=== PATIENT | female | born 1960 | race Caucasian/White ===

== ENCOUNTER 2018-06-13 12:19 | Emergency (ER) | payer OTHER ==
--- NOTE | 2018-06-13 13:05 | RAD REPORT ---
EXAM DESCRIPTION: CT - Head Brain Wo Cont - 06/13/2018 12:58 pm CLINICAL HISTORY: Headache COMPARISON: 2012 TECHNIQUE: Computed axial tomography of the head was obtained. IV contrast was not requested. All CT scans are performed using dose optimization technique as appropriate and may include automated exposure control or mA/KV adjustment according to patient size. FINDINGS: An intracranial bleed is not seen . The ventricles are normal in caliber. No extra-axial fluid collection is noted. Soft tissue is present within the sella turcica which appea rs a little bit more prominent than on the prior exam Fluid within the sinuses/ mastoids is not seen. IMPRESSION: Soft tissue within the sella turcica a which appears a little more prominent on the prio r exam probably representing volume averaging of normal pituitary gland. A small pituitary mass is co nsidered less likely. It is recommended that the patient have a nonemergent MRI of the pituitary glan d for further evaluation.
[2018-06-13] MEDS ORDERED: KETOROLAC 30 MG/ML INJ ONE (14:16)
--- NOTE | 2018-06-13 14:25 | EDPHYS ---
Physician Documentation [facility] Name: Era Contreras Age: 57 yrs Sex: Female : 1960 Arrival Date: 06/13/2018 Time: 12:22 Bed 20 Private MD: Vandana Lee F ED Physician Helio Salter HPI: 06/13 13:02 This 57 yrs old Female presents to ER via Ambulatory with complaints of kb Headache. 13:02 The patient or guardian reports cough, that is intermittent, described as moderate, kb with no sputum, flu symptoms, arthralgias, low-grade fever, myalgias. Onset: The symptoms/episode began/occurred 5 day(s) ago. Severity of symptoms: At their worst the symptoms were moderate, in the emergency department the symptoms are unchanged. Modifying factors: The symptoms are alleviated by nothing, the symptoms are aggravated by nothing. Associated signs and symptoms: Pertinent positives: fever, rhinorrhea, Pertinent negatives: chest pain, diarrhea, ear ache, nausea, sore throat, vomiting. The patient has not experienced similar symptoms in the past. The patient has been recently seen by a physician: the patient's primary care provider, yesterday, with similar presenting complaints, and apparently given a diagnosis of flu. Pt reports flu symptoms and a headache. States she was diagnosed with the flu yesterday by her PCP and started on Tamiflu. Today the headache has not been relieved with tylenol. Historical: - Allergies: 12:32 pentazocine lactate; hj 12:32 cyclobenzaprine HCl; hj 12:32 soap; hj 12:32 cefazolin sodium; hj 12:32 Morphine; hj 12:32 Codeine; hj 12:32 Metaxalone; hj 12:32 CAMPHOR; hj 12:32 Povidone-Iodine; hj - Home Meds: 12:32 atorvastatin 80 mg oral tab 1 tab once daily [Active]; amlodipine 5 mg tab 1 tab once hj daily [Active]; aspirin 81 mg Oral TbEC 1 tab once daily [Active]; Iron CR Oral daily [Active]; meloxicam 15 mg oral tab 1 tab once daily [Active]; - PMHx: 12:32 Hyperlipidemia; hj - PSHx: 12:32 Tonsillectomy; Adenoids; Tubal ligation; Hysterectomy; bunion surg; shoulder surg; hj Appendectomy; Bladder suspension; rectal surg with graft; - Immunization history:: Adult Immunizations up to date. - Social history:: Smoking status: Patient/guardian denies using tobacco, Patient/guardian denies using alcohol. - Ebola Screening: : Patient negative for fever greater than or equal to 101.5 degrees Fahrenheit, and additional compatible Ebola Virus Disease symptoms Patient denies exposure to infectious person Patient denies travel to an Ebola-affected area in the 21 days before illness onset. ROS: 12:59 Neck: Negative for injury, pain, and swelling, Cardiovascular: Negative for chest pain, kb palpitations, and edema, Abdomen/GI: Negative for abdominal pain, nausea, vomiting, diarrhea, and constipation, Back: Negative for injury and pain, : Negative for injury, bleeding, discharge, and swelling, MS/Extremity: Negative for injury and deformity, Skin: Negative for injury, rash, and discoloration. 12:59 Constitutional: Positive for body aches, chills, fatigue, fever, malaise, Negative for poor PO intake, weight loss. 12:59 ENT: Positive for rhinorrhea. 12:59 Respiratory: Positive for cough, Negative for dyspnea on exertion, hemoptysis, orthopnea, pleurisy, shortness of breath, sputum production, wheezing. 12:59 Neuro: Positive for headache. Exam: 12:59 Constitutional: This is a well developed, well nourished patient who is awake, alert, kb and in no acute distress. Head/Face: Normocephalic, atraumatic. Eyes: Pupils equal round and reactive to light, extra-ocular motions intact. Lids and lashes normal. Conjunctiva and sclera are non-icteric and not injected. Cornea within normal limits. Periorbital areas with no swelling, redness, or edema. ENT: Nares patent. No nasal discharge, no septal abnormalities noted. Tympanic membranes are normal and external auditory canals are clear. Oropharynx with no redness, swelling, or masses, exudates, or evidence of obstruction, uvula midline. Mucous membranes moist. Neck: Trachea midline, no thyromegaly or masses palpated, and no cervical lymphadenopathy. Supple, full range of motion without nuchal rigidity, or vertebral point tenderness. No Meningismus. Chest/axilla: Normal chest wall appearance and motion. Nontender with no deformity. No lesions are appreciated. Cardiovascular: Regular rate and rhythm with a normal S1 and S2. No gallops, murmurs, or rubs. Normal PMI, no JVD. No pulse deficits. Respiratory: Lungs have equal breath sounds bilaterally, clear to auscultation and percussion. No rales, rhonchi or wheezes noted. No increased work of breathing, no retractions or nasal flaring. Abdomen/GI: Soft, non-tender, with normal bowel sounds. No distension or tympany. No guarding or rebound. No evidence of tenderness throughout. Back: No spinal tenderness. No costovertebral tenderness. Full range of motion. Skin: Warm, dry with normal turgor. Normal color with no rashes, no lesions, and no evidence of cellulitis. MS/ Extremity: Pulses equal, no cyanosis. Neurovascular intact. Full, normal range of motion. Neuro: Awake and alert, GCS 15, oriented to person, place, time, and situation. Cranial nerves II-XII grossly intact. Motor strength 5/5 in all extremities. Sensory grossly intact. Cerebellar exam normal. Normal gait. Vital Signs: 12:34 BP 120 / 85; Pulse 112; Resp 18; Temp 99.3(TE); Pulse Ox 96% on R/A; Weight 74.84 kg; hj Height 5 ft. 3 in. (160.02 cm); Pain 10/10; 14:08 BP 103 / 62; Pulse 101; Resp 16; Temp 99.9(O); ss 15:08 BP 110 / 69; Pulse 93; Resp 18; Pulse Ox 94% ; mh5 12:34 Body Mass Index 29.23 (74.84 kg, 160.02 cm) MDM: 12:28 Patient medically screened. [facility] 12:58 Data reviewed: vital signs, nurses notes. Data interpreted: Pulse oximetry: on room air kb is 96 %. Interpretation: normal. 12:59 Counseling: I had a detailed discussion with the patient and/or guardian regarding: the kb historical points, exam findings, and any diagnostic results supporting the discharge/admit diagnosis, lab results, radiology results, the need for outpatient follow up, a family practitioner, to return to the emergency department if symptoms worsen or persist or if there are any questions or concerns that arise at home. 06/13 14:14 Order name: Urine Dipstick--Ancillary (enter results); Complete Time: 14:36 bd 06/13 12:44 Order name: CT Head Brain wo Cont; Complete Time: 13:07 kb 06/13 12:44 Order name: Urine Dipstick-Ancillary (obtain specimen); Complete Time: 13:47 kb 06/13 14:02 Order name: Vital Signs; Complete Time: 14:07 kb Administered Medications: 14:18 Drug: TORadol 60 mg Route: IM; Site: left gluteus; ss 14:45 Follow up: Response: No adverse reaction; Pain is unchanged, physician notified jl7 Disposition: 06/14 07:06 Co-signature as Attending Physician, Helio Salter MD I agree with the assessment and stephenie plan of care. Disposition: 06/13/18 14:24 Discharged to Home. Impression: Acute upper respiratory infection, unspecified, Headache. - Condition is Stable. - Discharge Instructions: Influenza, Adult, Mypa-qq-Yuad, General Headache Without Cause, [id number]. - Medication Reconciliation Form, Thank You Letter, Antibiotic Education, Prescription Opioid Use form. - Follow up: Emergency Department; When: As needed; Reason: Worsening of condition. Follow up: Vandana Lee MD; When: 2 - 3 days; Reason: Recheck today's complaints, Continuance of care, Re-evaluation by your physician. Signatures: Dispatcher [employer] EDMS Mariya Carrillo, FINISH MILL OPERATOR-C FINISH MILL OPERATOR-Ckb Helio Salter MD MD cha Smirch, Shelby, RN RN ss Joaquin, Henry, RN RN hj Leal, Jahala, RN RN jl7 Corrections: (The following items were deleted from the chart) 06/13 15:33 14:24 06/13/2018 14:24 Discharged to Home. Impression: Acute upper respiratory jl7 infection, unspecified; Headache. Condition is Stable. Forms are Medication Reconciliation Form, Thank You Letter, Antibiotic Education, Prescription Opioid Use. Follow up: Emergency Department; When: As needed; Reason: Worsening of condition. Follow up: Vandana Lee; When: 2 - 3 days; Reason: Recheck today's complaints, Continuance of care, Re-evaluation by your physician. kb
--- NOTE | 2018-06-13 14:25 | ER ---
Nurse's Notes [facility] Name: Era Contreras Age: 57 yrs Sex: Female : 1960 Arrival Date: 06/13/2018 Time: 12:22 Bed 20 Private MD: Vandana Lee F Diagnosis: Acute upper respiratory infection, unspecified;Headache Presentation: 06/13 12:27 Presenting complaint: Patient states: i was at my PCP and was tested positive flu and hj last night i started having sharp shooting pain on my L baptist; reports fever, T- 103 at home; denies nausea and vomiting; reports diarrhea since last night;. Transition of care: patient was not received from another setting of care. Onset of symptoms was June 13, 2018. Risk Assessment: Do you want to hurt yourself or someone else? Patient reports no desire to harm self or others. Initial Sepsis Screen: Does the patient meet any 2 criteria? No. Patient's initial sepsis screen is negative. Does the patient have a suspected source of infection? No. Patient's initial sepsis screen is negative. Care prior to arrival: None. 12:27 Method Of Arrival: Ambulatory 12:27 Acuity: EVERETTE 4 hj Triage Assessment: 12:33 Headache History: Denies prior headaches. General: Appears in no apparent distress. hj uncomfortable, Behavior is calm, cooperative, appropriate for age. Pain: Complains of pain in head Pain currently is 10 out of 10 on a pain scale. Pain began 1 day ago. Also complains of. Neuro: Level of Consciousness is awake, alert, obeys commands, Oriented to person, place, time, situation, Appropriate for age. Historical: - Allergies: 12:32 pentazocine lactate; hj 12:32 cyclobenzaprine HCl; hj 12:32 soap; hj 12:32 cefazolin sodium; hj 12:32 Morphine; hj 12:32 Codeine; hj 12:32 Metaxalone; hj 12:32 CAMPHOR; hj 12:32 Povidone-Iodine; hj - Home Meds: 12:32 atorvastatin 80 mg oral tab 1 tab once daily [Active]; amlodipine 5 mg tab 1 tab once hj daily [Active]; aspirin 81 mg Oral TbEC 1 tab once daily [Active]; Iron CR Oral daily [Active]; meloxicam 15 mg oral tab 1 tab once daily [Active]; - PMHx: 12:32 Hyperlipidemia; hj - PSHx: 12:32 Tonsillectomy; Adenoids; Tubal ligation; Hysterectomy; bunion surg; shoulder surg; hj Appendectomy; Bladder suspension; rectal surg with graft; - Immunization history:: Adult Immunizations up to date. - Social history:: Smoking status: Patient/guardian denies using tobacco, Patient/guardian denies using alcohol. - Ebola Screening: : Patient negative for fever greater than or equal to 101.5 degrees Fahrenheit, and additional compatible Ebola Virus Disease symptoms Patient denies exposure to infectious person Patient denies travel to an Ebola-affected area in the 21 days before illness onset. Screenin:32 Abuse screen: Denies threats or abuse. Denies injuries from another. Nutritional hj screening: No deficits noted. Tuberculosis screening: No symptoms or risk factors identified. Fall Risk None identified. Assessment: 13:00 General: Appears in no apparent distress. uncomfortable, ill, Behavior is calm, jl7 cooperative, appropriate for age. Pain: Complains of pain in left baptist Pain currently is 10 out of 10 on a pain scale. Quality of pain is described as sharp, shooting, Pain began 1 day ago. Is intermittent. Neuro: Level of Consciousness is awake, alert, obeys commands, Oriented to person, place, time, situation. Cardiovascular: Patient's skin is warm and dry. Respiratory: Airway is patent Respiratory effort is even, unlabored, Respiratory pattern is regular, symmetrical. Derm: Skin is pink, warm \T\ dry. Musculoskeletal: No signs and/or symptoms reported regarding the musculoskeletal system. 14:00 Reassessment: Patient appears in no apparent distress at this time. Patient and/or ss family updated on plan of care and expected duration. Pain level reassessed. Patient is alert, oriented x 3, equal unlabored respirations, skin warm/dry/pink. Respiratory: Breath sounds are clear bilaterally. Vital Signs: 12:34 BP 120 / 85; Pulse 112; Resp 18; Temp 99.3(TE); Pulse Ox 96% on R/A; Weight 74.84 kg; hj Height 5 ft. 3 in. (160.02 cm); Pain 10/10; 14:08 BP 103 / 62; Pulse 101; Resp 16; Temp 99.9(O); ss 15:08 BP 110 / 69; Pulse 93; Resp 18; Pulse Ox 94% ; mh5 12:34 Body Mass Index 29.23 (74.84 kg, 160.02 cm) ED Course: 12:22 Patient arrived in ED. rg4 12:22 Vandana Lee MD is Private Physician. rg4 12:29 Triage completed. hj 12:34 Arm band placed on left wrist. hj 12:34 Patient has correct armband on for positive identification. Bed in low position. Call light in reach. Side rails up X 1. 12:36 Mariya Carrillo FNP-C is PHCP. kb 12:36 Helio Salter MD is Attending Physician. kb 12:48 Caro Best, LEANNE is Primary Nurse. jl7 12:56 CT completed. Patient tolerated procedure well. Patient moved to CT via wheelchair. sw Patient moved back from CT. 12:58 CT Head Brain wo Cont In Process Unspecified. EDMS 14:24 Vandana Lee MD is Referral Physician. kb 15:27 No provider procedures requiring assistance completed. Patient did not have IV access jl7 during this emergency room visit. Administered Medications: 14:18 Drug: TORadol 60 mg Route: IM; Site: left gluteus; ss 14:45 Follow up: Response: No adverse reaction; Pain is unchanged, physician notified jl7 Outcome: 14:24 Discharge ordered by MD. kb 15:27 Discharged to home ambulatory. jl7 15:27 Condition: stable 15:27 Discharge instructions given to patient, Instructed on discharge instructions, follow up and referral plans. Demonstrated understanding of instructions, follow-up care. 15:33 Patient left the ED. jl7 Signatures: Dispatcher [employer] EDMS Mariya Carrillo FNP-C FNP-Ckb Smirch, Shelby, RN RN ss Warren, Shannon sw Joaquin, Henry, Sabrina Vidal RN 4 April [facility] Caro Best, LEANNE RN jl7
[2018-06-13 14:32] LABS: Urine Blood 2+ (NEG); Urine Glucose NEGATIVE (NEG); Urine Protein TRACE (NEG); Urine Specific Gravity 1.015 (1.005-1.030); Urine pH 5.5 (5.0-7.0)
== END 2018-06-13 15:33 | disposition home or self-care (01) ==
LOC: ER 12:19
DX: J06.9 Acute upper respiratory infection, unspecified (principal); E78.5 Hyperlipidemia, unspecified; Z79.82 Long term (current) use of aspirin; Z88.5 Allergy status to narcotic agent; Z88.8 Allergy status to other drugs, medicaments and biological substances; Z91.048 Other nonmedicinal substance allergy status
CPT/HCPCS: 70450; 81003; 82962; 96372; 99284

== ENCOUNTER 2021-09-08 07:18 | Day surgery (SDC) | payer OTHER ==
[2021-09-07 15:51] LABS: Absolute Lymphocytes (CBC) 2.3 K/uL (0.7-4.9); Lymphocytes % 35.5 % (15.3-44.8); RBC Red Blood Cell Count 4.22 M/uL (3.86-4.86)
[2021-09-07 16:07] LABS: Albumin 3.5 g/dL (3.4-5.0); Bilirubin Direct 0.2 mg/dL (0-0.2); Bilirubin Total 0.5 mg/dL (0.2-1.0); Potassium 3.6 mmol/L (3.5-5.1); Protein, Total 6.6 g/dL (6.4-8.2)
--- NOTE | 2021-09-07 16:11 | RAD REPORT ---
EXAM DESCRIPTION: RAD - Chest Pa And Lat (2 Views) - 09/07/2021 3:47 pm CLINICAL HISTORY: Pre Op, pending cholecystectomy COMPARISON: February 2018 TECHNIQUE: Frontal and lateral views of the chest were obtained. FINDINGS: The lungs are clear of acute finding. Interstitial pattern matches the prior study. Heart size is normal and central vasculature is within normal limits. No pleural effusion or pneumothorax seen. No acute bony finding noted. No aortic abnormality. IMPRESSION: No acute cardiopulmonary process. No significant change from comparison study.
[2021-09-08] MEDS ORDERED: Ringers Lactate 1,000 ML IV ONE (08:12)
[2021-09-08] MEDS ORDERED: CIPROFLOXACIN 400mg IV 400 MG/200 ML BAG IV ONE (08:12)
[2021-09-08] MEDS ORDERED: dexAMETHasone 10 MG/ML VIAL ONE (08:29)
[2021-09-08] MEDS ORDERED: ROCURONIUM 50 MG/5 ML VIAL IV ONE (08:29)
[2021-09-08] MEDS ORDERED: FENTANYL CITR 100 MCG/2 ML ONE (08:29)
[2021-09-08] MEDS ORDERED: propofoL 200 MG/20 ML VIAL IV ONE (08:29)
[2021-09-08] MEDS ORDERED: KETOROLAC 30 MG/ML INJ ONE (08:30)
[2021-09-08] MEDS ORDERED: MIDAZOLAM HCL 2 MG/2 ML INJ ONE (08:30)
[2021-09-08] MEDS ORDERED: LIDOCAINE 2% MPF 5 ML VIAL ONE (08:30)
[2021-09-08] MEDS ORDERED: ONDANSETRON 4 MG/2 ML VIAL ONE (08:34)
[2021-09-08] MEDS ORDERED: BUPIVACAINE 0.5% PF 10 ML VIAL ONE (09:27)
[2021-09-08] MEDS: BUPIVACAINE 0.5% PF 10 ML VIAL ONE ×2 (09:58→10:05)
--- NOTE | 2021-09-08 10:21 | P.BOP ---
Preoperative diagnosis: biliary dyskinesia, RUQ abd pain Postoperative diagnosis: same Primary procedure: LAparoscopic cholecystectomy Bleacher Sulfite Pulp: Zo Delaney (Romulo) Estimated blood loss: <10cc Specimen: gb Findings: as above Anesthesia: General Complications: None Transferred to: Recovery Room Condition: Good
[2021-09-08] MEDS ORDERED: GLYCOPYRROLATE 0.2 MG/ML SYR ONE (10:25)
[2021-09-08] MEDS: HYDROMORPHONE HCL 1 MG/ML INJ ONE ×2 (10:52→10:59)
[2021-09-08] MEDS ORDERED: TRAMADOL HCL 50 MG TAB ONE (11:53)
[2021-09-08 13:20] VITALS: BP 110/70; TEMP 98; O2SAT 93
== END 2021-09-08 12:35 | disposition home or self-care (01) ==
LOC: OR 07:18
PROVIDERS: ATTEND Surgery
PROC: 0FT44ZZ Resection of Gallbladder, Percutaneous Endoscopic Approach (ICD-10-PCS; principal; 2021-09-08 09:15)
DX: K81.1 Chronic cholecystitis (principal); R10.11 Right upper quadrant pain; Z20.822 Contact with and (suspected) exposure to COVID-19
CPT/HCPCS: 93005; 85025; 80048; 36415; 82150; 80076; 88304; 83690; 71046; 47562; U0003; J2704; J2250; J3010; J1100; J1170; J7120; J2405; J0744

== ENCOUNTER 2022-05-10 22:33 | Emergency (ER) | payer OTHER ==
--- OUTSIDE RECORDS SUMMARY | 2022-05-10 22:35 | XMS REPORT | Continuity of Care Document ---
:1960 Author Organization [facility] t Address [address] [place] [address] [address] [place] [address] Care Team Providers Name Role Phone DR HERMES PACK Attending Clinician Unavailable MOUNA, DR HEYDI DELANEY Attending Clinician Unavailable DR HERMES PACK Admitting Clinician Unavailable MOUNA, DR HEYDI DELANEY Admitting Clinician Unavailable Problems This patient has no known problems. Allergies, Adverse Reactions, Alerts Allergy Allergy Status Severity Reaction(s) Onset Inactive Treating Comm ents Source Name Type Date Date Clinician Ancef DA Active Unknown ear lobe [facility] swelling [facility] Betadine DA Active Unknown Blister [facility] Silvaden DA Active Unknown Blister [facility] e [facility] Flexall DA Active Unknown cannot [facility] urinate [facility] Medications This patient has no known medications. Vital Signs Vital Name Observation Time Observation Value Comments Source Height 2021-02-16 08:10:00 160.02 CM Weight 2021-02-16 08:10:00 74.38 KG Height 2021-02-15 08:49:00 160.02 CM Weight 2021-02-15 08:49:00 71.66 KG Height 2021-02-09 06:21:00 160.02 CM Weight 2021-02-09 06:21:00 73.02 KG Height 2021-02-01 13:14:00 160.02 CM Weight 2021-02-01 13:14:00 71.66 KG Height 2020-06-29 06:23:00 160.02 CM Weight 2020-06-29 06:23:00 71.21 KG Procedures Procedure Date / Time Performed Performing Clinician Amparo hamm EXC NASAL SEPTUM ZULEYKA/ART 2021-02-16 00:00:00 [facility] ENDO Center EXCISION NASAL TURBIN 2021-02-16 00:00:00 [facility] ENDO Center DRAINAGE LT SP SIN 2021-02-16 00:00:00 [facility]ULEYKA/ART [facility] END Center REPLACEMENT LT MID EAR 2020-06-29 00:00:00 [facility] AUTO TISS OP Center REPLACEMENT LEFT AUD 2020-06-29 00:00:00 [facility] OSSICLE SYN OP Center Encounters Start End Encounter Admission Attending Care Care Encounter Source Date/Time Date/Time Type Type Clinicians Facility Department ID 2021-02-16 2021-02-16 Outpatient Briseida [facility] OSCGP [id number] [facility] 13[facility] 2021-02-09 2021-02-09 Outpatient Briseida [facility]ASC [id number] [place] 05:58:00 08:00:00 [facility] 2020-06-29 2020-06-29 [facility] [id number] [place] 05:41:00 10:40:00 [facility] Results This patient has no known results.
[2022-05-10 23:15] LABS: Urine Blood Trace-lysed (Negative); Urine Glucose Negative (Negative); Urine Protein Negative (Negative); Urine Specific Gravity <=1.005 (1.005-1.030)
[2022-05-10 23:33] LABS: Absolute Lymphocytes (CBC) 2.6 K/uL (0.7-4.9); Hematocrit 40.4 % (36.0-45.0); Lymphocytes % 41.3 % (15.3-44.8); MCV 92.2 fL (80-100); MPV 9.2 fL (7.6-11.3); RBC Red Blood Cell Count 4.37 M/uL (3.86-4.86)
[2022-05-10 23:41] LABS: Urine Bacteria <20 /HPF (<20); Urine RBC <5 /HPF (None Seen)
[2022-05-10] MEDS ORDERED: ONDANSETRON 4 MG/2 ML VIAL ONE (23:45)
[2022-05-10] MEDS ORDERED: FENTANYL CITR 100 MCG/2 ML ONE (23:45)
[2022-05-10] MEDS ORDERED: FAMOTIDINE 20 MG/2 ML VIAL IV ONE (23:45)
[2022-05-11 00:01] LABS: Albumin 3.9 g/dL (3.4-5.0); Bilirubin Total 0.5 mg/dL (0.2-1.0); Potassium 3.5 mmol/L (3.5-5.1); Protein, Total 7.3 g/dL (6.4-8.2); Troponin High Sensitivity 3.5 pg/mL (<58.9)
[2022-05-11 00:09] LABS: Protime INR 1.05
--- NOTE | 2022-05-11 01:24 | ER ---
Nurse's Notes [facility] Name: Era Contreras Age: 61 yrs Sex: Female : 1960 Arrival Date: 05/10/2022 Time: 22:39 Bed 26 Private MD: Diagnosis: Abdominal tenderness;Unspecified symptoms and signs involving the musculoskeletal system Presentation: 05/10 22:53 Chief complaint: Patient states: epigastric pain started 2 hours ago while bowling. 3 Coronavirus screen:. Ebola Screen: No symptoms or risks identified at this time. Risk Assessment: Do you want to hurt yourself or someone else? Patient reports no desire to harm self or others. Onset of symptoms was May 10, 2022. 22:53 Method Of Arrival: Ambulatory [facility] 22:53 Acuity: EVERETTE 3 3 22:54 Initial Sepsis Screen: Does the patient meet any 2 criteria? No. Patient's initial [facility] sepsis screen is negative. Does the patient have a suspected source of infection? No. Patient's initial sepsis screen is negative. Triage Assessment: 22:54 General: Appears distressed, uncomfortable, Behavior is cooperative, appropriate for [facility] age, crying. Pain: Complains of pain in epigastric area Pain does not radiate. Pain currently is 9 out of 10 on a pain scale. Quality of pain is described as sharp, stabbing, Pain began 2 hours ago. Is continuous, Alleviated by rest, Aggravated by increased activity. Neuro: Level of Consciousness is awake, alert, obeys commands, Oriented to person, place, time, situation. Cardiovascular: Capillary refill < 3 seconds Patient's skin is warm and dry. Respiratory: Airway is patent Respiratory effort is even, unlabored. GI: No signs and/or symptoms were reported involving the gastrointestinal system. : No signs and/or symptoms were reported regarding the genitourinary system. Historical: - Allergies: 22:54 CAMPHOR; 3 22:54 cefazolin sodium; eh3 22:54 Codeine; eh3 22:54 cyclobenzaprine HCl; eh3 22:54 Metaxalone; eh3 22:54 Morphine; eh3 22:54 pentazocine lactate; eh3 22:54 Povidone-Iodine; eh3 22:54 soap; 3 - Home Meds: 22:54 amlodipine 5 mg tab 1 tab once daily [Active]; aspirin 81 mg Oral TbEC 1 tab once daily 3 [Active]; Iron CR Oral daily [Active]; meloxicam 15 mg Oral tab 1 tab once daily [Active]; - PMHx: 22:54 Hyperlipidemia; eh3 - Immunization history:: Adult Immunizations. - Social history:: Smoking status: Patient denies any tobacco usage or history of. Patient/guardian denies using alcohol. - Family history:: not pertinent. Screenin:24 Abuse screen: Denies threats or abuse. Denies injuries from another. Nutritional kb3 screening: No deficits noted. Tuberculosis screening: No symptoms or risk factors identified. Fall Risk None identified. Assessment: 23:24 General: Appears in no apparent distress. Behavior is calm, cooperative, See triage kb3 note. GI: Bowel sounds present X 4 quads. Abd is soft Abdomen is tender to palpation in epigastric area. 05/11 01:08 Reassessment: Patient is alert, oriented x 3, equal unlabored respirations, skin bb warm/dry/pink. pt states her abdominal pain is returning Dr Salter notified. 02:22 Reassessment: Patient is alert, oriented x 3, equal unlabored respirations, skin bb warm/dry/pink. pt verbalized understanding of and agrees to plan of care discharge instructions given pt assisted to exit via wheelchair accompanied by this RN Patient states feeling better. Vital Signs: 05/10 22:54 BP 142 / 90; Pulse 85; Resp 18; Temp 99.2(O); Pulse Ox 98% on R/A; Weight 68.04 kg; 3 Height 5 ft. 2 in. (157.48 cm); Pain 9/10; 23:40 BP 140 / 84; Pulse 79; Resp 18; Pulse Ox 100% on R/A; Pain 6/10; ld1 05/11 01:09 BP 123 / 83; Pulse 87; Resp 20 S; Pulse Ox 99% on R/A; bb 01:58 BP 118 / 80; Pulse 77; Resp 16 S; Pulse Ox 100% on R/A; Pain 5/10; bb 05/10 22:54 Body Mass Index 27.44 (68.04 kg, 157.48 cm) [facility] ED Course: 05/10 22:39 Patient arrived in ED. ag3 22:54 Triage completed. eh3 22:54 Arm band placed on right wrist. eh3 23:13 Helio Salter MD is Attending Physician. stephenie 23:16 Inserted saline lock: 20 gauge in right antecubital area, using aseptic technique. ld1 Blood collected. 23:16 Urine Microscopic Only Sent. ld1 23:24 Lana Ramirez, RN is Primary Nurse. kb3 23:24 Patient has correct armband on for positive identification. Bed in low position. Call kb3 light in reach. Side rails up X 1. 23:47 XRAY Chest (1 view) In Process Unspecified. EDMS 05/11 00:44 CT Abd/Pelvis - IV Contrast Only In Process Unspecified. EDMS 01:58 No provider procedures requiring assistance completed. bb 02:23 IV discontinued, intact, bleeding controlled, No redness/swelling at site. Pressure bb dressing applied. Administered Medications: 05/10 23:40 Drug: fentaNYL (PF) 50 mcg Route: IVP; Site: right antecubital; ld1 05/11 00:30 Follow up: Response: No adverse reaction bb 05/10 23:40 Drug: Zofran (Ondansetron) 4 mg Route: IVP; Site: right antecubital; ld1 05/11 00:30 Follow up: Response: No adverse reaction bb 05/10 23:40 Drug: Pepcid (famotidine) 20 mg Route: IVP; Site: right antecubital; ld1 05/11 00:30 Follow up: Response: No adverse reaction bb 01:57 Drug: fentaNYL (PF) 50 mcg Route: IVP; Site: right antecubital; bb 02:21 Follow up: Response: Pain is decreased bb 01:57 Drug: Zofran (Ondansetron) 4 mg Route: IVP; Site: right antecubital; bb 02:21 Follow up: Response: No adverse reaction bb Medication: 05/10 23:24 VIS not applicable for this client. kb3 Outcome: 05/11 01:23 Discharge ordered by . stephenie 02:22 Discharged to home via wheelchair, with family. bb 02:22 Condition: stable 02:22 Discharge instructions given to patient, Instructed on discharge instructions, follow up and referral plans. no driving heavy equipment, medication usage, Demonstrated understanding of instructions, follow-up care, medications, Prescriptions given X 4. 02:23 Patient left the ED. bb Signatures: Dispatcher [employer] EDCO Helio Salter MD MD cha Ballard, Brenda, RN RN bb Ria Gayle Lauren, RN RN ld1 Anita Antony, RN RN eh3 Lana Ramirez RN RN kb3
--- NOTE | 2022-05-11 01:24 | EDPHYS ---
Physician Documentation [facility] Name: Era Contreras Age: 61 yrs Sex: Female : 1960 Arrival Date: 05/10/2022 Time: 22:39 Bed 26 Private MD: DANYEL Physician Heloi Salter HPI: 05/11 01:16 This 61 yrs old Female presents to ER via Ambulatory with complaints of stephenie Abdominal Pain. 01:16 The patient presents with abdominal pain in the epigastric area, in the upper abdomen. stephenie Onset: The symptoms/episode began/occurred just prior to arrival. The symptoms do not radiate. Associated signs and symptoms: none. The symptoms are described as crampy, sharp. Modifying factors: The symptoms are alleviated by remaining still, the symptoms are aggravated by movement. Severity of pain: At its worst the pain was. The patient has not experienced similar symptoms in the past. Historical: - Allergies: 05/10 22:54 CAMPHOR; eh3 22:54 cefazolin sodium; eh3 22:54 Codeine; eh3 22:54 cyclobenzaprine HCl; eh3 22:54 Metaxalone; eh3 22:54 Morphine; eh3 22:54 pentazocine lactate; eh3 22:54 Povidone-Iodine; eh3 22:54 soap; eh3 - Home Meds: 22:54 amlodipine 5 mg tab 1 tab once daily [Active]; aspirin 81 mg Oral TbEC 1 tab once daily eh3 [Active]; Iron CR Oral daily [Active]; meloxicam 15 mg Oral tab 1 tab once daily [Active]; - PMHx: 22:54 Hyperlipidemia; eh3 - Immunization history:: Adult Immunizations. - Social history:: Smoking status: Patient denies any tobacco usage or history of. Patient/guardian denies using alcohol. - Family history:: not pertinent. ROS: 05/11 01:16 Constitutional: Negative for fever, chills, and weight loss, Eyes: Negative for injury, stephenie pain, redness, and discharge, ENT: Negative for injury, pain, and discharge, Neck: Negative for injury, pain, and swelling, Cardiovascular: Negative for chest pain, palpitations, and edema, Respiratory: Negative for shortness of breath, cough, wheezing, and pleuritic chest pain, Back: Negative for injury and pain, : Negative for injury, bleeding, discharge, and swelling, MS/Extremity: Negative for injury and deformity, Skin: Negative for injury, rash, and discoloration, Neuro: Negative for headache, weakness, numbness, tingling, and seizure, Psych: Negative for depression, anxiety, suicide ideation, homicidal ideation, and hallucinations, Allergy/Immunology: Negative for hives, rash, and allergies, Endocrine: Negative for neck swelling, polydipsia, polyuria, polyphagia, and marked weight changes, Hematologic/Lymphatic: Negative for swollen nodes, abnormal bleeding, and unusual bruising. Abdomen/GI: Positive for abdominal pain, abdominal cramps, abdominal distension. Exam: 01:16 Constitutional: This is a well developed, well nourished patient who is awake, alert, stephenie and in no acute distress. Head/Face: Normocephalic, atraumatic. Eyes: Pupils equal round and reactive to light, extra-ocular motions intact. Lids and lashes normal. Conjunctiva and sclera are non-icteric and not injected. Cornea within normal limits. Periorbital areas with no swelling, redness, or edema. ENT: Nares patent. No nasal discharge, no septal abnormalities noted. Tympanic membranes are normal and external auditory canals are clear. Oropharynx with no redness, swelling, or masses, exudates, or evidence of obstruction, uvula midline. Mucous membranes moist. Neck: Trachea midline, no thyromegaly or masses palpated, and no cervical lymphadenopathy. Supple, full range of motion without nuchal rigidity, or vertebral point tenderness. No Meningismus. Chest/axilla: Normal chest wall appearance and motion. Nontender with no deformity. No lesions are appreciated. Cardiovascular: Regular rate and rhythm with a normal S1 and S2. No gallops, murmurs, or rubs. Normal PMI, no JVD. No pulse deficits. Respiratory: Lungs have equal breath sounds bilaterally, clear to auscultation and percussion. No rales, rhonchi or wheezes noted. No increased work of breathing, no retractions or nasal flaring. Back: No spinal tenderness. No costovertebral tenderness. Full range of motion. Female : Normal external genitalia. Skin: Warm, dry with normal turgor. Normal color with no rashes, no lesions, and no evidence of cellulitis. MS/ Extremity: Pulses equal, no cyanosis. Neurovascular intact. Full, normal range of motion. Neuro: Awake and alert, GCS 15, oriented to person, place, time, and situation. Cranial nerves II-XII grossly intact. Motor strength 5/5 in all extremities. Sensory grossly intact. Cerebellar exam normal. Normal gait. Psych: Awake, alert, with orientation to person, place and time. Behavior, mood, and affect are within normal limits. 01:16 ECG was reviewed by the Attending Physician. 01:16 Abdomen/GI: Inspection: abdomen appears normal, Bowel sounds: normal, Palpation: mild abdominal tenderness, moderate abdominal tenderness, in the umbilical area, right upper quadrant and left upper quadrant, Liver: no appreciated palpable abnormalities, Hernia: not appreciated. 01:25 Musculoskeletal/extremity: DVT Exam: No signs of deep vein thrombosis. no pain, no stephenie swelling, no tenderness, negative Homans' sign noted on exam, no appreciated bluish discoloration, no erythema, no increased warmth. Vital Signs: 05/10 22:54 BP 142 / 90; Pulse 85; Resp 18; Temp 99.2(O); Pulse Ox 98% on R/A; Weight 68.04 kg; eh3 Height 5 ft. 2 in. (157.48 cm); Pain 9/10; 23:40 BP 140 / 84; Pulse 79; Resp 18; Pulse Ox 100% on R/A; Pain 6/10; ld1 05/11 01:09 BP 123 / 83; Pulse 87; Resp 20 S; Pulse Ox 99% on R/A; bb 01:58 BP 118 / 80; Pulse 77; Resp 16 S; Pulse Ox 100% on R/A; Pain 5/10; bb 05/10 22:54 Body Mass Index 27.44 (68.04 kg, 157.48 cm) eh3 MDM: 05/10 23:13 Patient medically screened. stephenie 05/11 01:21 Differential diagnosis: diverticulitis, gastritis, gastroesophageal reflux disease, stephenie non-specific abd pain, pancreatitis, Peptic Ulcer Disease, urinary tract infection. Data reviewed: vital signs, nurses notes, lab test result(s), EKG, radiologic studies, CT scan, plain films. Data interpreted: personnel monitor: rate is 87 beats/min, rhythm is regular, Pulse oximetry: on room air. Test interpretation: by ED physician or midlevel provider: ECG, plain radiologic studies. Counseling: I had a detailed discussion with the patient and/or guardian regarding: the historical points, exam findings, and any diagnostic results supporting the discharge/admit diagnosis, lab results, radiology results, the need for outpatient follow up, for definitive care, a family practitioner. 05/10 22:58 Order name: CBC with Diff; Complete Time: 00:10 [facility] 05/10 22:58 Order name: CMP; Complete Time: 00:10 [facility] 05/10 22:58 Order name: Lipase; Complete Time: 00:10 [facility] 05/10 23:03 Order name: Urine Microscopic Only; Complete Time: 00:10 [facility] 05/10 23:16 Order name: Urine Dipstick-Ancillary; Complete Time: 00:10 [facility] 05/10 23:20 Order name: PT-INR [facility] 05/10 23:20 Order name: XRAY Chest (1 view) [facility] 05/10 23:29 Order name: Troponin High Sensitivity; Complete Time: 00:10 [facility] 05/10 23:29 Order name: NT PRO-BNP; Complete Time: 00:10 [facility] 05/10 23:32 Order name: CT Abd/Pelvis - IV Contrast Only [facility] 05/10 22:58 Order name: IV Saline Lock; Complete Time: 23:16 [facility] 05/10 22:58 Order name: Labs collected and sent; Complete Time: 23:16 [facility] 05/10 23:03 Order name: Urine Dipstick-Ancillary (obtain specimen); Complete Time: 23:16 [facility] 05/10 23:20 Order name: EKG; Complete Time: 23:20 [facility] 05/10 23:20 Order name: Cardiac monitoring; Complete Time: 23:26 [facility] 05/10 23:20 Order name: EKG - Nurse/Tech; Complete Time: 01:12 [facility] 05/10 23:20 Order name: O2 Per Protocol; Complete Time: 23:26 [facility] 05/10 23:20 Order name: O2 Sat Monitoring; Complete Time: 23:26 [facility] EC:16 Rate is 103 beats/min. Rhythm is regular. QRS [place] is Normal. [place] interval is normal. [facility] QRS interval is normal. QT interval is normal. No Q waves. T waves are Normal. No ST changes noted. Clinical impression: Normal ECG, NSR w/ Non-specific ST/T Changes, and No evidence of ischemia. Interpreted by me. Reviewed by me. Administered Medications: 05/10 23:40 Drug: fentaNYL (PF) 50 mcg Route: IVP; Site: right antecubital; ld1 05/11 00:30 Follow up: Response: No adverse reaction bb 05/10 23:40 Drug: Zofran (Ondansetron) 4 mg Route: IVP; Site: right antecubital; ld1 05/11 00:30 Follow up: Response: No adverse reaction bb 05/10 23:40 Drug: Pepcid (famotidine) 20 mg Route: IVP; Site: right antecubital; ld1 05/11 00:30 Follow up: Response: No adverse reaction bb 01:57 Drug: fentaNYL (PF) 50 mcg Route: IVP; Site: right antecubital; bb 02:21 Follow up: Response: Pain is decreased bb 01:57 Drug: Zofran (Ondansetron) 4 mg Route: IVP; Site: right antecubital; bb 02:21 Follow up: Response: No adverse reaction bb Disposition Summary: 05/11/22 01:23 Discharge Ordered Location: Home stephenie Problem: new stephenie Symptoms: have improved stephenie Condition: Stable stephenie Diagnosis - Abdominal tenderness stephenie - Unspecified symptoms and signs involving the musculoskeletal system stephenie Followup: stephenie - With: Private Physician - When: 2 - 3 days - Reason: Recheck today's complaints, Continuance of care, Re-evaluation by your physician Discharge Instructions: - Discharge Summary Sheet stephenie - Abdominal Pain, Adult stephenie - Abdominal Pain, Adult, [id number] stephenie - Musculoskeletal Pain stephenie Forms: - Medication Reconciliation Form stephenie - Thank You Letter stephenie - Antibiotic Education stephenie - Prescription Opioid Use stephenie Prescriptions: - Pepcid 20 mg Oral Tablet - take 1 tablet by ORAL route every 12 hours for 10 days; 20 tablet; Refills: 0, [facility] Product Selection Permitted - Zofran 4 mg Oral Tablet - take 1 tablet by ORAL route every 12 hours As needed; 20 tablet; Refills: 0, [facility] Product Selection Permitted - Diclofenac Sodium 75 mg Oral tablet,delayed release (DR/EC) - take 1 tablet by ORAL route 2 times per day; 20 tablet; Refills: 0, Product stephenie Selection Permitted - Tylenol-Codeine #3 300 mg-30 mg Oral - take 2 tablet by ORAL route every 6 hours; 20 tablet; Refills: 0, Product stephenie Selection Permitted Signatures: Dispatcher [employer] EDMS Helio Salter MD MD cha Ballard, Brenda RN RN Simi Hawkins RN RN ld1 Anita Antony RN RN eh3 Corrections: (The following items were deleted from the chart) 05/10 23: 23:20 PROBNP+C.LAB.BRZ ordered. EDMS EDMS 23:20 Troponin High Sensitivity+C.LAB.BRZ ordered. EDMS EDMS
[2022-05-11] MEDS ORDERED: ONDANSETRON 4 MG/2 ML VIAL ONE (01:58)
[2022-05-11] MEDS ORDERED: FENTANYL CITR 100 MCG/2 ML ONE (01:58)
[2022-05-11 03:06] VITALS: TEMP 99.2
[2022-05-11 03:20] VITALS: BP 118/80; O2SAT 100
--- NOTE | 2022-05-11 16:27 | RAD REPORT ---
EXAM DESCRIPTION: Abdomen Pelvis W Contrast CLINICAL HISTORY: Abdominal pain, acute, nonlocalized COMPARISON: None Available. TECHNIQUE: CT of the abdomen and pelvis performed following IV administration of iodinated contras t. This exam was performed according to our departmental dose-optimization program, which includes au tomated exposure control, adjustment of the mA and/or kV according to patient size and/or use of iter ative reconstruction technique. FINDINGS: Lung Bases: The visualized lung bases are clear. Bones: No destructive bone lesions identified. Abdomen: Liver: The liver has normal size and density. No intrahepatic biliary dilatation. Gallbladder: Prior cholecystectomy. Spleen, Pancreas, and Adrenal Glands: The spleen, pancreas, and adrenal glands are unremarkable. Kidneys: No hydronephrosis or obstructing calculus. Vasculature: Aortoiliac atherosclerosis. The portal vein is patent. The proximal visceral and renal arteries are patent. Stomach: The stomach and duodenum have normal course. Other: No free intraperitoneal air. No free fluid or lymphadenopathy. Pelvis: Bladder: Urinary bladder is unremarkable. Bowel: No dilated loops of large or small bowel. Moderate amount of stool. Scattered diverticula th roughout the colon. Appendix: Normal appendix. Pelvis: Prior hysterectomy. IMPRESSION: 1. No acute inflammatory or obstructive process identified. 2. Diverticulosis without evidence of acute diverticulitis. Electronically signed by: Piyush Ortiz 05/11/2022 12:54 AM CDT Due to temporary technical issues with the PACS/Fluency reporting system, reports are being signed by the in house radiologists without review as a courtesy to insure prompt reporting. The interpreting radiologist is fully responsible for the content of the report.
--- NOTE | 2022-05-11 18:37 | RAD REPORT ---
EXAM DESCRIPTION: Chest Single View CLINICAL HISTORY: 61 years Female ABDOMINAL DISTENTION COMPARISON: None TECHNIQUE: AP view of the chest was obtained. FINDINGS: Cardiac silhouette is mildly enlarged. Central vessels are not increased. No infiltrates or effusions seen. No consolidation. No pneumothorax. IMPRESSION: Mildly enlarged heart with no evidence for congestive heart failure. No infiltrates seen . Electronically signed by: Jacquie Thornton MD 05/10/2022 11:59 PM CDT Due to temporary technical issues with the PACS/Fluency reporting system, reports are being signed by the in house radiologists without review as a courtesy to insure prompt reporting. The interpreting radiologist is fully responsible for the content of the report.
--- NOTE | 2022-05-12 14:00 | EKG ---
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
== END 2022-05-11 02:23 | disposition home or self-care (01) ==
LOC: ER 22:33
DX: R10.819 Abdominal tenderness, unspecified site (principal); R29.91 Unspecified symptoms and signs involving the musculoskeletal system; E78.5 Hyperlipidemia, unspecified; Z88.5 Allergy status to narcotic agent; Z88.8 Allergy status to other drugs, medicaments and biological substances; Z91.048 Other nonmedicinal substance allergy status; Z79.82 Long term (current) use of aspirin
CPT/HCPCS: 85025; 36415; 85610; 84484; 83690; 80053; 83880; 71045; J3010; J2405; 74177; 81003; 81015; 93005; Q9967